=== PATIENT | female | born 1960 | race African-American/Black ===

== ENCOUNTER 2020-11-02 04:41 | Day surgery (SDC) | payer OTHER ==
[2020-10-28 17:34] VITALS: BMI 26.4
[2020-11-02] MEDS ORDERED: BUPIVACAINE HCL/PF 0.5% (5MG/ML) 10 ML VIAL ONE ×2 (10:25)
[2020-11-02] MEDS ORDERED: LIDOCAINE HCL 1%, 10 MG/ML (20ML VIAL) ONE (10:25)
[2020-11-02] MEDS ORDERED: PROPOFOL 20 ML ONE ×2 (10:26)
[2020-11-02] MEDS ORDERED: MIDAZOLAM HCL 2 MG/2 ML SINGLE DOSE VIAL ONE (10:26)
[2020-11-02] MEDS ORDERED: ceFAZolin SODIUM 1 GM VIAL IVPB ONE (10:45)
[2020-11-02] MEDS ORDERED: BUPIVACAINE HCL/PF 0.5% (5MG/ML) 10 ML VIAL IJ ONE ×2 (11:04)
[2020-11-02] MEDS ORDERED: LIDOCAINE HCL 1%, 10 MG/ML (20ML VIAL) NR ONE ×2 (11:04)
[2020-11-02 13:16] VITALS: PULSE 67; TEMP 98.1
[2020-11-02 14:22] VITALS: BP 139/81
== END 2020-11-02 13:20 | disposition home or self-care (01) ==
LOC: JASU-SURG 04:41
PROVIDERS: ATTEND Orthopaedic Surgery
PROC: 0LB50ZZ Excision of Right Lower Arm and Wrist Tendon, Open Approach (ICD-10-PCS; principal; 2020-11-02 09:30)
DX: M67.431 Ganglion, right wrist (principal)
CPT/HCPCS: 82962; 88307-TC

== ENCOUNTER → 2023-08-04 | Day surgery (SDC) | payer OTHER | END | disposition home or self-care (01) | LOC: FRADUS-SUR 10:59 | PROVIDERS: ATTEND Registered Nurse | PROC: 0HBT3ZX Excision of Right Breast, Percutaneous Approach, Diagnostic (ICD-10-PCS; principal; 2023-08-04) | DX: N60.11 Diffuse cystic mastopathy of right breast (principal); N60.31 Fibrosclerosis of right breast; N60.81 Other benign mammary dysplasias of right breast; N64.89 Other specified disorders of breast; R92.8 Other abnormal and inconclusive findings on diagnostic imaging of breast | CPT/HCPCS: 19085; 77065-TC; 88305-TC; A4648 ==

== ENCOUNTER → 2023-09-05 | Day surgery (SDC) | payer OTHER | END | disposition home or self-care (01) | LOC: JRADUS-SUR 13:53 | PROVIDERS: ATTEND Surgery Surgical Oncology | PROC: BH00ZZZ Plain Radiography of Right Breast (ICD-10-PCS; principal; 2023-09-05) | DX: N64.89 Other specified disorders of breast (principal) | CPT/HCPCS: 19281; A4648 ==

== ENCOUNTER 2023-09-27 04:07 | Day surgery (SDC) | payer OTHER ==
[2023-08-31 13:23] VITALS: BMI 25.7
[~2023-09-27 04:07] MED LIST: CEFAZOLIN SODIUM 2 GM in DEXTROSE 5%-WATER 100 ML IVPB ONE
[2023-09-27] MEDS ORDERED: ONDANSETRON 4 MG/2 ML VIAL IVPUSH PRN (09:02)
[2023-09-27] MEDS ORDERED: oxyCODONE HCL 5 MG TABLET PO PRN (09:02)
[2023-09-27] MEDS ORDERED: LACTATED RINGERS SOLUTION 1,000 ML IV SCH (09:15)
[2023-09-27] MEDS ORDERED: BUPIVACAINE HCL/PF 0.5% (5MG/ML) 10 ML VIAL ONE (10:46)
[2023-09-27] MEDS ORDERED: BENZOIN/ALOE VERA/STORAX/TOLU 58 ML BOTTLE ONE (10:47)
[2023-09-27] MEDS ORDERED: LIDOCAINE 1%/EPI 1:100000 (20 ML MULTI DOSE VIAL) ONE (10:47)
[2023-09-27] MEDS ORDERED: MIDAZOLAM HCL 2 MG/2 ML SINGLE DOSE VIAL ONE (11:31)
[2023-09-27] MEDS ORDERED: FENTANYL CITRATE/PF 50 MCG/ML VIAL ONE (11:31)
[2023-09-27] MEDS ORDERED: PROPOFOL 40 ML ONE (11:31)
[2023-09-27] MEDS: ceFAZolin SODIUM 1 GM VIAL IVPB ONE (11:48)
[2023-09-27] MEDS: BUPIVACAINE HCL/PF 0.5% (5MG/ML) 10 ML VIAL IJ ONE (12:19)
[2023-09-27] MEDS ORDERED: BUPIVACAINE HCL/PF 0.25% (2.5MG/ML) 10 ML VIAL ONE (12:28)
[2023-09-27 13:20] VITALS: RESP 16
[2023-09-27] MEDS: ONDANSETRON 4 MG/2 ML VIAL IVPUSH ONE (14:35)
[2023-09-27] MEDS ORDERED: ONDANSETRON 4 MG/2 ML VIAL ONE (14:37)
[2023-09-27 14:53] VITALS: TEMP 97.8
[2023-09-27 16:50] VITALS: BP 140/77; PULSE 80
== END 2023-09-27 16:40 | disposition home or self-care (01) ==
LOC: JASU-SURG 04:07
PROVIDERS: ATTEND Surgery Surgical Oncology
PROC: 07B50ZX Excision of Right Axillary Lymphatic, Open Approach, Diagnostic (ICD-10-PCS; 2023-09-27)
PROC: 0HBT0ZZ Excision of Right Breast, Open Approach (ICD-10-PCS; principal; 2023-09-27 12:00)
DX: C50.911 Malignant neoplasm of unspecified site of right female breast (principal); C77.3 Secondary and unspecified malignant neoplasm of axilla and upper limb lymph nodes
CPT/HCPCS: 76098-TC-FY; 78195-TC; 88307-TC; 88341-TC; 88342-TC; 94760; A9541

== ENCOUNTER 2023-10-11 04:31 | Day surgery (SDC) | payer OTHER ==
[2023-10-09 13:14] VITALS: BMI 25.5
[2023-10-11] MEDS ORDERED: ceFAZolin SODIUM 1 GM VIAL ONE (07:10)
[2023-10-11] MEDS ORDERED: MIDAZOLAM HCL 2 MG/2 ML SINGLE DOSE VIAL ONE (08:38)
[2023-10-11] MEDS ORDERED: PROPOFOL 20 ML ONE ×2 (08:38→10:32)
[2023-10-11] MEDS ORDERED: LIDOCAINE HCL/PF 2% SDV 5ML VIAL ONE (08:38)
[2023-10-11] MEDS ORDERED: ACETAMINOPHEN INJECTION 100 ML IVPB ONE (08:50)
[2023-10-11] MEDS ORDERED: ONDANSETRON 4 MG/2 ML VIAL IVPUSH PRN (09:14)
[2023-10-11] MEDS ORDERED: oxyCODONE HCL 5 MG TABLET PO PRN (09:14)
[2023-10-11] MEDS ORDERED: CEFAZOLIN SODIUM 2 GM in DEXTROSE 5%-WATER 100 ML IVPB ONE (09:15)
[2023-10-11] MEDS ORDERED: LACTATED RINGERS SOLUTION 1,000 ML IV SCH (09:15)
[2023-10-11] MEDS ORDERED: BUPIVACAINE HCL/PF 0.25% (2.5MG/ML) 10 ML VIAL ONE (09:20)
[2023-10-11] MEDS ORDERED: METHYLENE BLUE 50 MG/10 ML AMPUL ONE (09:20)
[2023-10-11] MEDS ORDERED: ISOSULFAN BLUE 50 MG/5 ML VIAL SQ ONE (09:21)
[2023-10-11] MEDS ORDERED: LIDOCAINE HCL 1%, 10 MG/ML (20ML VIAL) ONE (09:30)
[2023-10-11] MEDS: BUPIVACAINE HCL/PF 0.25% (2.5MG/ML) 10 ML VIAL IJ ONE (09:48)
[2023-10-11 14:27] VITALS: RESP 20
[2023-10-11 14:51] VITALS: BP 140/75; PULSE 67; TEMP 97.3
== END 2023-10-11 14:49 | disposition home or self-care (01) ==
LOC: JASU-SURG 04:31
PROVIDERS: ATTEND Surgery Surgical Oncology
PROC: 0HBT0ZZ Excision of Right Breast, Open Approach (ICD-10-PCS; principal; 2023-10-11 09:00)
DX: C50.911 Malignant neoplasm of unspecified site of right female breast (principal)
CPT/HCPCS: 19281; 76098-TC-FY; 82962; 88307-TC; 88341-TC; 88342-TC; 94760; J0131; Q9968

== ENCOUNTER 2024-06-13 09:10 | Day surgery (SDC) | payer OTHER ==
[2024-06-13 11:28] LABS: BASO % 0.4 % (0-2.0); HEMATOCRIT 34.6 % (32.4-45.2); HEMOGLOBIN 11.3 GM/dL (10.7-15.3); LYMPH % 34.2 % (8-40); MCH 28.6 pg (25.7-33.7); MCHC 32.6 g/dl (32.0-36.0); MEAN CELL VOLUME 87.7 fl (80-96); MEAN PLT VOLUME 8.1 fl (7.5-11.1); MONO % 13.4 % (3.8-10.2); PLATELET COUNT 182 10^3/uL (134-434); RBC 3.95 M/mm3 (3.60-5.2); RDW 16.5 % (11.6-15.6); WHITE BLOOD COUNT 2.9 K/mm3 (4.0-10.0)
[2024-06-13 12:11] LABS: POTASSIUM 3.3 mmol/L (3.5-5.1)
[2024-06-13 12:15] LABS: CALCIUM 9.3 mg/dL (8.5-10.1)
[2024-06-13 12:16] LABS: BLOOD UREA NITROGEN 24.4 mg/dL (7-18)
[2024-06-13 12:18] LABS: BILIRUBIN,TOTAL 0.3 mg/dL (0.2-1); TOT PROT 8.1 g/dl (6.4-8.2)
[2024-06-13 12:19] LABS: CREATININE 0.8 mg/dL (0.55-1.3)
[2024-06-13] MEDS: PERTUZUMAB 420 MG in SODIUM CHLORIDE 250 ML IVPB ONE (12:43)
[2024-06-13] MEDS: TRASTUZUMAB-QYYP 410 MG in SODIUM CHLORIDE 250 ML IVPB ONE (14:30)
[2024-06-13] MEDS: POTASSIUM CHLORIDE TABS 20 MEQ TABLET.ER (FP) PO ONE (14:32)
[2024-06-13 16:02] VITALS: BP 120/65; PULSE 86; RESP 20; TEMP 98.6
== END 2024-06-13 15:20 | disposition home or self-care (01) ==
LOC: JONCCHEMO 09:10
PROVIDERS: ATTEND Internal Medicine Hematology & Oncology
DX: Z51.11 Encounter for antineoplastic chemotherapy (principal); C50.911 Malignant neoplasm of unspecified site of right female breast; Z17.0 Estrogen receptor positive status [ER+]
CPT/HCPCS: 36415; 80053; 85025; 96413; 96417; J9306; Q5116

== ENCOUNTER 2024-07-05 09:00 | Day surgery (SDC) | payer OTHER ==
[2024-07-05 09:49] LABS: ABSOLUTE IMMATURE GRANULOCYTES 0.01 x10^3/uL (0.0-0.031); BASOPHILS # 0.02 x10^3/uL (0.01-0.08); EOSINOPHIL % 0.8 % (0.7-5.8); EOSINOPHILS # 0.03 x10^3/uL (0.04-0.36); HEMATOCRIT 34.4 % (34.1-44.9); HEMOGLOBIN 10.5 g/dL (11.2-15.7); MCHC 30.5 g/dl (32.2-35.5); MEAN CELL VOLUME 90.1 fl (79.4-94.8); MEAN PLT VOLUME 9.6 fl (9.4-12.3); MONOCYTE # 0.51 x10^3/uL (0.24-0.86); MONOCYTE % 13.5 % (4.7-12.5); PLATELET COUNT 185 x10^3/uL (182-369); RDW 15.2 % (12.4-16.4)
[2024-07-05 10:11] LABS: CHLORIDE 102 mmol/L (98-107); POTASSIUM 3.6 mmol/L (3.5-5.1); SODIUM 138 mmol/L (136-145)
[2024-07-05 10:13] LABS: ALBUMIN 3.8 g/dl (3.4-5.0); ANION GAP 6 mmol/L (4-13); BLOOD UREA NITROGEN 19.1 mg/dL (7-18); CALCIUM 9.3 mg/dL (8.5-10.1); CO2 31 mmol/L (21-32); GLUCOSE,RANDOM 116 mg/dL (74-106)
[2024-07-05 10:16] LABS: CREATININE 0.8 mg/dL (0.55-1.3); SGOT/AST 20 U/L (15-37); SGPT/ALT 27 U/L (13-61)
[2024-07-05 10:17] LABS: BILIRUBIN,DIRECT 0.1 mg/dL (0.0-0.2)
[2024-07-05 10:18] LABS: BILIRUBIN,TOTAL 0.4 mg/dL (0.2-1); TOT PROT 7.8 g/dl (6.4-8.2)
[2024-07-05 10:19] LABS: ALK PHOS 61 U/L (45-117)
[2024-07-05] MEDS: PERTUZUMAB 420 MG in SODIUM CHLORIDE 250 ML IVPB ONE (11:46)
[2024-07-05] MEDS: TRASTUZUMAB QYYP IVPB ONE (12:22)
[2024-07-05] MEDS: SODIUM CHLORIDE IVPB ONE (12:22)
[2024-07-05 12:34] VITALS: RESP 18; TEMP 97.5
[2024-07-05 13:05] VITALS: BP 117/63; PULSE 68
== END 2024-07-05 13:15 | disposition home or self-care (01) ==
LOC: J7W 09:00 → JONCCHEMO 09:00
PROVIDERS: ATTEND Internal Medicine Hematology & Oncology
DX: Z51.11 Encounter for antineoplastic chemotherapy (principal); C50.911 Malignant neoplasm of unspecified site of right female breast; Z17.0 Estrogen receptor positive status [ER+]
CPT/HCPCS: 36415; 80048; 80076; 85025; 96413; 96417; J9306; Q5116

== ENCOUNTER 2024-09-13 09:39 | Day surgery (SDC) | payer OTHER ==
[2024-09-13 10:41] LABS: ABSOLUTE IMMATURE GRANULOCYTES 0.01 x10^3/uL (0.0-0.031); BASOPHILS # 0.02 x10^3/uL (0.01-0.08); EOSINOPHIL % 1.4 % (0.7-5.8); EOSINOPHILS # 0.05 x10^3/uL (0.04-0.36); HEMATOCRIT 36.7 % (34.1-44.9); HEMOGLOBIN 11.3 g/dL (11.2-15.7); MCHC 30.8 g/dl (32.2-35.5); MEAN CELL VOLUME 90.4 fl (79.4-94.8); MEAN PLT VOLUME 10.2 fl (9.4-12.3); MONOCYTE # 0.45 x10^3/uL (0.24-0.86); MONOCYTE % 12.3 % (4.7-12.5); PLATELET COUNT 203 x10^3/uL (182-369); RDW 15.7 % (12.4-16.4)
[2024-09-13 11:12] LABS: CHLORIDE 102 mmol/L (98-107); POTASSIUM 3.7 mmol/L (3.5-5.1); SODIUM 140 mmol/L (136-145)
[2024-09-13 11:14] LABS: CALCIUM 10.3 mg/dL (8.5-10.1)
[2024-09-13 11:15] LABS: ANION GAP 6 mmol/L (4-13); BLOOD UREA NITROGEN 24.2 mg/dL (7-18); CO2 33 mmol/L (21-32); GLUCOSE,RANDOM 102 mg/dL (74-106)
[2024-09-13 11:18] LABS: SGOT/AST 22 U/L (15-37); SGPT/ALT 26 U/L (13-61)
[2024-09-13 11:20] LABS: BILIRUBIN,TOTAL 0.4 mg/dL (0.2-1); TOT PROT 8.1 g/dl (6.4-8.2)
[2024-09-13 11:21] LABS: ALK PHOS 72 U/L (45-117)
[2024-09-13] MEDS: PERTUZUMAB 420 MG in SODIUM CHLORIDE 250 ML IVPB ONE (12:24)
[2024-09-13] MEDS: SODIUM CHLORIDE IVPB ONE (13:01)
[2024-09-13] MEDS: TRASTUZUMAB QYYP IVPB ONE (13:01)
[2024-09-13 14:53] VITALS: BP 120/67; PULSE 89; RESP 20; TEMP 98
== END 2024-09-13 14:00 | disposition home or self-care (01) ==
LOC: JONCCHEMO 09:39
PROVIDERS: ATTEND Internal Medicine Hematology & Oncology
DX: Z51.11 Encounter for antineoplastic chemotherapy (principal); C50.911 Malignant neoplasm of unspecified site of right female breast
CPT/HCPCS: 36415; 80053; 85025; 96413; 96417; J9306; Q5116

== ENCOUNTER 2024-10-28 09:09 | Day surgery (SDC) | payer OTHER ==
[2024-10-28 09:42] LABS: ABSOLUTE IMMATURE GRANULOCYTES 0.01 x10^3/uL (0.0-0.031); BASOPHILS # 0.02 x10^3/uL (0.01-0.08); EOSINOPHIL % 1.0 % (0.7-5.8); EOSINOPHILS # 0.04 x10^3/uL (0.04-0.36); MCHC 30.2 g/dl (32.2-35.5); MEAN CELL VOLUME 92.1 fl (79.4-94.8); MEAN PLT VOLUME 9.8 fl (9.4-12.3); MONOCYTE # 0.40 x10^3/uL (0.24-0.86); MONOCYTE % 9.6 % (4.7-12.5); RDW 15.6 % (12.4-16.4)
[2024-10-28 10:31] LABS: CO2 30 mmol/L (21-32); GLUCOSE,RANDOM 109 mg/dL (74-106)
[2024-10-28 10:34] LABS: CREATININE 0.9 mg/dL (0.55-1.3); SGOT/AST 21 U/L (15-37); SGPT/ALT 25 U/L (13-61)
[2024-10-28 10:36] LABS: TOT PROT 7.8 g/dl (6.4-8.2)
[2024-10-28 10:37] LABS: ALK PHOS 65 U/L (45-117)
[2024-10-28] MEDS: PERTUZUMAB 420 MG in SODIUM CHLORIDE 250 ML IVPB ONE (12:00)
[2024-10-28] MEDS: TRASTUZUMAB QYYP IVPB ONE (12:39)
[2024-10-28] MEDS: SODIUM CHLORIDE IVPB ONE (12:39)
[2024-10-28 15:00] VITALS: RESP 18; TEMP 98.5
[2024-10-28 15:34] VITALS: BP 153/83; PULSE 63
== END 2024-10-28 13:15 | disposition home or self-care (01) ==
LOC: JONCCHEMO 09:09 → J7W 09:09 → JONCCHEMO 13:15
PROVIDERS: ATTEND Internal Medicine Hematology & Oncology
DX: Z51.11 Encounter for antineoplastic chemotherapy (principal); C50.911 Malignant neoplasm of unspecified site of right female breast; Z17.0 Estrogen receptor positive status [ER+]
CPT/HCPCS: 36415; 80048; 80076; 85025; 96413; 96417; J9306; Q5116

== ENCOUNTER 2024-12-30 10:57 | Day surgery (SDC) | payer OTHER ==
[2024-12-30 10:51] LABS: ABSOLUTE IMMATURE GRANULOCYTES 0.03 x10^3/uL (0.0-0.031); BASOPHILS # 0.02 x10^3/uL (0.01-0.08); EOSINOPHIL % 1.6 % (0.7-5.8); EOSINOPHILS # 0.07 x10^3/uL (0.04-0.36); MCHC 30.1 g/dl (32.2-35.5); MEAN CELL VOLUME 91.3 fl (79.4-94.8); MEAN PLT VOLUME 9.8 fl (9.4-12.3); MONOCYTE # 0.55 x10^3/uL (0.24-0.86); MONOCYTE % 12.7 % (4.7-12.5); RDW 15.9 % (12.4-16.4)
[2024-12-30 11:24] LABS: TOT PROT 8.0 g/dl (6.4-8.2)
[2024-12-30 11:26] LABS: ALK PHOS 63 U/L (40-150)
[2024-12-30 11:29] LABS: SGOT/AST 26 U/L (5-34); SGPT/ALT 25 U/L (0-55)
[2024-12-30 11:55] LABS: GLUCOSE,RANDOM 97 mg/dL (74-106)
[2024-12-30 11:56] LABS: CO2 29 mmol/L (21-32)
[2024-12-30 12:01] LABS: CREATININE 0.81 mg/dL (0.55-1.3); LDL CHOLESTEROL (ONLY SJRH) 81 mg/dL (5-100)
[2024-12-30] MEDS: PERTUZUMAB 420 MG in SODIUM CHLORIDE 250 ML IVPB ONE (12:52)
[2024-12-30] MEDS: TRASTUZUMAB QYYP IVPB ONE (13:26)
[2024-12-30] MEDS: SODIUM CHLORIDE IVPB ONE (13:26)
[2024-12-30 17:24] VITALS: TEMP 98
[2024-12-30 17:28] VITALS: BP 129/81; PULSE 68; RESP 18
== END 2024-12-30 14:00 | disposition home or self-care (01) ==
LOC: JONCCHEMO 10:57
PROVIDERS: ATTEND Internal Medicine Hematology & Oncology
DX: Z51.11 Encounter for antineoplastic chemotherapy (principal); C50.911 Malignant neoplasm of unspecified site of right female breast
CPT/HCPCS: 36415; 80053; 80061; 80076; 85025; 96413; 96417; J9306; Q5116